=== PATIENT | male | born 1990 | race African-American/Black ===

== ENCOUNTER → 2017-06-01 | Outpatient (CLI) | payer OTHER ==
--- NOTE | 2017-06-01 15:33 | RADIOLOGY REPORT (SQ) ---
EXAM DESCRIPTION: NM HIDA SCAN WITH CCK COMPLETED DATE/TIME: 06/01/2017 2:47 pm REASON FOR STUDY: R10.11 RIGHT UPPER QUADRANT PAIN R10.11 RIGHT UPPER QUADRANT PAIN COMPARISON: None. RADIONUCLIDE AND DOSE: DOSAGE RADIONUCLIDE: 5.2 millicuries Tc99m Mebrofenin. DOSAGE CCK: 1.6 micrograms. DOSAGE MORPHINE: Not required. The route of agent administration: Intravenous TECHNIQUE: Serial imaging right upper quadrant up to 60 minutes following injection of radionuclide. CCK injected after gallbladder visualized. LIMITATIONS: None. FINDINGS: LIVER: Normal visualization without areas of photopenia. INTRAHEPATIC BILE DUCTS: Normal size and no delay in visualization. COMMON BILE DUCT: Normal without dilatation. GALLBLADDER: Normal visualization. Calculated ejection fraction of 46%. Normal range is greater th an 35%. PHYSICAL RESPONSE: Patients presenting complaint was reproduced. OTHER: No other significant finding. IMPRESSION: NORMAL STUDY WITHOUT CYSTIC OR COMMON DUCT OBSTRUCTION. NORMAL GALLBLADDER EJECTION FRA CTION. NO EVIDENCE FOR BILIARY DYSKINESIS. TECHNICAL DOCUMENTATION: JOB ID: [id number] [employer]- All Rights Reserved
== END ==
LOC: RAD 13:39
PROVIDERS: ATTEND Internal Medicine Gastroenterology
DX: R10.11 Right upper quadrant pain (principal)
CPT/HCPCS: 78227; J2805; A9537; Q9969